=== PATIENT | male | born 1995 | race Caucasian/White ===

== ENCOUNTER 2021-07-15 17:54 | Emergency (ER) | payer OTHER, SELFPAY ==
[2021-07-15] VITALS (10 sets, daily range): BP systolic 104–136; BP diastolic 61–78; PULSE 76–110; RESP 16–26; TEMP 37.1; O2SAT 95–99
--- NOTE | 2021-07-15 18:14 | DI.RAD.S_ITS ---
PROCEDURE: XR CHEST 2V INDICATIONS: weird chest feelings TECHNIQUE: 2 views of the chest were acquired. COMPARISON: None. FINDINGS: Surgical changes and devices: None. Lungs and pleura: Lungs are clear. No pleural effusions or pneumothorax. Mediastinum: Mediastinal contours are normal. Heart size is normal. Bones and chest wall: No suspicious bony abnormalities. Soft tissues appear unremarkable. IMPRESSION: 1. No acute cardiopulmonary disease. Dictated by: Deniz Cortes M.D. on 07/15/2021 at 19:09 Approved by: Deniz Cortes M.D. on 07/15/2021 at 19:12
--- NOTE | 2021-07-15 19:58 | ED.ARRPALP ---
HPI - Arrhythmia/Palpitations General Chief Complaint: Arrhythmia/Palpitations Stated Complaint: chest heaviness, after covid vaccine 01/25/21 Time Seen by Provider: 07/15/21 19:56 Source: patient Mode of arrival: Ambulatory History of Present Illness HPI narrative: 26-year-old male nonsmoker with noncontributory medical history presents with his significant other and a chief complaint of episodes of left-sided chest discomfort off and on since January. He states that he had symptoms develop soon after receiving his COVID vaccination and every 1-2 weeks he has an episode of 1-2 days of noticing this left-sided chest discomfort. He denies any obvious provocation, palliation or radiation. He states that he is frequently active and denies any exertional component. He exercises daily and this does not seem to affect his symptoms. He denies associated symptoms such as dizziness, weakness, lightheadedness or shortness of breath. He has had no cough or hemoptysis. He denies any recent travel, injury or history of blood clot. Review of Systems Review of Systems Narrative: GENERAL: Denies chills, fatigue, malaise, fever, sweats. HEENT: Denies sinus pain, ear pain, sore throat, difficulty swallowing, dizziness. RESPIRATORY: Denies dyspnea, cough, wheezing, hemoptysis, sputum. CARDIOVASCULAR: See HPI GASTROINTESTINAL: Denies nausea, vomiting, abdominal pain, diarrhea, constipation, melena. : Denies dysuria, frequency, incontinence, hematuria, urinary retention. MUSCULOSKELETAL: denies weakness, joint pain, or bony pain SKIN: Denies rash, skin lesions, or other NEUROLOGIC: Denies weakness, headache, numbness, change in speech, confusion, seizures, incoordination. PSYCHIATRIC: No concerning psychosocial issues. 12 point review of systems is negative except for those stated above Patient History Social History Smoking Status: Current every day smoker Smoking Status: Current every day smoker tobacco type: vaping Exam Narrative Exam Narrative: GENERAL: [26 year old patient appears stated age. Well-developed patient, in mild distress. HEAD: Atraumatic. Normocephalic. EYES: Pupils equal round and reactive. Extraocular motions intact. No scleral icterus. No injection or drainage. ENT: Nose without bleeding, purulent drainage. Throat without erythema, tonsillar hypertrophy or exudate. Airway patent. NECK: Trachea midline. Non tender CARDIOVASCULAR: Regular rate and rhythm without murmurs, gallops, or rubs. RESPIRATORY: Clear to auscultation. Breath sounds equal bilaterally. No wheezes, rales, or rhonchi. GASTROINTESTINAL: Abdomen soft, non-tender, nondistended. EXTREMITIES: No edema or joint tenderness. BACK: Nontender without deformity or crepitance. No flank tenderness. NEURO: AOx3. SKIN: No rash or erythema of visible areas Initial Vital Signs Initial Vital Signs: Vital Signs Temperature 98.8 F 07/15/21 18:10 Pulse Rate 110 H 07/15/21 18:10 Respiratory Rate 22 07/15/21 18:10 Blood Pressure 132/78 07/15/21 18:10 Pulse Oximetry 99 07/15/21 18:10 Course Orders Ordered: ED Orders 07/15/21 18:14 XR chest 2V Stat EKG-12 Lead Stat 07/15/21 20:14 C-Reactive Protein Quant Stat Complete Blood Count AUTO DIFF Stat Comprehensive Metabolic Panel Stat D Dimer Stat Erythrocyte Sedimentation Rate Stat Troponin & CK Cardiac Panel Stat 07/15/21 20:36 CT angio chest PE protocol Stat Discontinued Medications Sodium Chloride (Normal Saline 0.9%) 1,000 mls @ 1,000 mls/hr IV BOLUS ONE Stop: 07/15/21 21:35 Last Admin: 07/15/21 20:56 Dose: 1,000 mls/hr Documented by: NIKKO Vital Signs Vital signs: Vital Signs - 8 hr 07/15/21 18:10 07/15/21 19:46 07/15/21 20:15 Temperature 98.8 F Pulse Rate 110 H 92 H 83 Respiratory Rate 22 20 20 Blood Pressure 132/78 136/78 131/71 Pulse Oximetry 99 98 98 07/15/21 20:29 07/15/21 20:30 07/15/21 20:46 Temperature Pulse Rate 78 83 78 Respiratory Rate 18 20 26 H Blood Pressure 109/61 Pulse Oximetry 97 95 99 07/15/21 21:00 07/15/21 21:30 07/15/21 22:00 Temperature Pulse Rate 76 81 78 Respiratory Rate 21 16 19 Blood Pressure 109/61 Pulse Oximetry 97 96 96 07/15/21 22:12 Temperature Pulse Rate 90 Respiratory Rate 21 Blood Pressure 104/73 Pulse Oximetry 97 MDM - Arrhythmia/Palpitations Lab Data Result diagrams: 07/15/21 20:14 07/15/21 20:14 Labs: Lab Results 07/15/21 07/15/21 07/15/21 Range/Units 20:14 20:14 20:14 WBC 11.7 H (4.5-11.0) X10^3/uL RBC 5.61 (4.5-5.9) X10^6/uL Hgb 17.0 (13.5-17.5) g/dL Hct 48.7 (41-53) % MCV 86.8 (80-100) fL MCH 30.4 (26-34) PG MCHC 35.0 (30-36) % RDW 13.2 (11.6-14.8) % Plt Count 340 (150-400) X10^3/uL Neut % (Auto) 75.7 H (50-75) % Lymph % (Auto) 18.8 L (25-40) % [place] % (Auto) 4.6 (3-14) % Eos % (Auto) 0.4 L (2-4) % Baso % (Auto) 0.5 (0-2) % Neut # (Auto) 8800 H (3083-9742) /uL Lymph # (Auto) 2200 (9815-9039) /uL [place] # (Auto) 500 (0-900) /uL Eos # (Auto) 0 (0-450) /uL Baso # (Auto) 100 (0-100) /uL ESR 2 (0-15) MM/HR D-Dimer 252 H (<230) ng/mL Sodium 139 (137-145) mmol/L Potassium 4.0 (3.4-5.1) mmol/L Chloride 100 (98-107) mmol/L Carbon Dioxide 28 (22-32) mmol/L BUN 10 (9-20) mg/dL Creatinine 0.99 (0.66-1.25) mg/dL Estimated GFR > 60.0 (>60) mL/min BUN/Creatinine Ratio 10.1 (6-22) Glucose 97 (70-100) mg/dL Calcium 9.7 (8.4-10.2) mg/dL Total Bilirubin 0.6 (0.2-1.3) mg/dL AST 28 (17-59) IU/L ALT 57 H (<50) IU/L Alkaline Phosphatase 76 (38-126) U/L Total Creatine Kinase 41 L (55-170) U/L CK-MB (CK-2) TNP CK-MB (CK-2) Rel Index TNP Troponin I < 0.012 (0.01-0.034) ng/mL C-Reactive Protein < 0.5 (<1.0) mg/dL Total Protein 8.2 (6.3-8.2) g/dL Albumin 4.8 (3.5-5.0) g/dL Globulin 3.4 (1.7-4.1) g/dL Albumin/Globulin Ratio 1.4 (1.0-2.8) Imaging Data Chest x-ray: Radiologist's Impresson: Kenmaryann CASTILLOYandel J??26??M??1995 ? Allergy/Adv: Not Recorded Close Chest X-Ray (Signed) Deniz Cortes - 07/15/21 Launch?[place] [address] XRay Report Signed Patient: Yandel Mason JR MR#: [id number] : 1995 Acct:[id number] Age/Sex: 26 / M Date of Service: 07/15/21 Loc: Accession Number: [id number] ?? Procedure: XR chest 2V Ordering Provider: Clayton Payne D.O. PROCEDURE:? XR CHEST 2V ? INDICATIONS:? weird chest feelings ? TECHNIQUE:? 2 views of the chest were acquired.? ? COMPARISON:? None. ? FINDINGS:? ? Surgical changes and devices:? None.? ? Lungs and pleura:? Lungs are clear.? No pleural effusions or pneumothorax.? ? Mediastinum:? Mediastinal contours are normal.? Heart size is normal.? ? Bones and chest wall:? No suspicious bony abnormalities.? Soft tissues appear unremarkable.? ? IMPRESSION:? ? 1.? No acute cardiopulmonary disease. ? ? ? Dictated by: Deniz Cortes M.D. on 07/15/2021 at 19:09 ? ? Approved by: Deniz Cortes M.D. on 07/15/2021 at 19:12 ? CT scan - chest: Radiologist's Impresson: Yandel Mason JR??26??M??1995 ? Allergy/Adv: Not Recorded Close Chest CTA (Signed) Deniz Cortes - 07/15/21 Chest X-Ray (Signed) Deniz Cortes - 07/15/21 Launch?[place] [address] CT Scan Report Signed Patient: Yandel Mason JR MR#: [id number] : 1995 Acct:[id number] Age/Sex: 26 / M Date of Service: 07/15/21 Loc: ED Accession Number: [id number] ?? Procedure: CT angio chest PE protocol Ordering Provider: Clayton Payne D.O. PROCEDURE:? CT ANGIO CHEST PE PROTOCOL ? INDICATIONS:? chest pain, tachycardia elevated DDimer, since COVID shot ? TECHNIQUE:? After the administration of intravenous contrast, 2 mm thick sections acquired from the pulmonary apices to the posterior costophrenic angles.? 3-dimensional maximum intensity projection (MIP) coronal and sagittal reformats were then acquired through the thorax.? For radiation dose reduction, the following was used:? automated exposure control, adjustment of mA and/or kV according to patient size.? ? COMPARISON:? [facility], CR, XR CHEST 2V, 07/15/2021, 18:24. ? FINDINGS:? Image quality:? Excellent.? ? Pulmonary arteries:? Pulmonary arteries are normal in size, and demonstrate no intraluminal filling defects to suggest central pulmonary embolism.? ? Lungs and pleura:? Lungs are clear without acute consolidation.? No pleural effusions or pneumothorax.? Central and peripheral airways are patent.? ? Mediastinum:? Heart size is normal, without pericardial effusion.? No mediastinal or hilar adenopathy.? There is soft tissue within the anterior mediastinum compatible with residual thymus.? Thoracic aorta is normal in caliber and enhancement.? Esophagus is normal in caliber, without hiatal hernia.? ? Bones and chest wall:? No suspicious bony lesions.? Ribs and thoracic spine appear intact throughout.? Visualized thyroid demonstrates no discrete nodules.? No axillary or supraclavicular adenopathy.? ? Abdomen:? Visualized upper abdominal solid organs appear normal in the early arterial phase of enhancement.? ? IMPRESSION:? ? 1. No evidence of pulmonary embolism. ? 2. No acute airspace disease in the lungs.? ? ? Dictated by: Deniz Cortes M.D. on 07/15/2021 at 21:52 ? ? Approved by: Deniz Cortes M.D. on 07/15/2021 at 21:54 ? ECG Data Interpretation: EKG: Sinus tachycardia, rate 119. No ST segmental elevations or depressions. No T-wave inversions or hyperacute T-waves. No obvious ectopy. MDM Narrative Medical decision making narrative: Patient with many months of episodes of left-sided chest pressure. No exertional components, no radiation, nausea, vomiting or other red flag findings. EKG is nonischemic. Labs are very reassuring with the exception of a slightly elevated D-dimer. CT angiogram performed and there is no evidence of PE, pericardial effusion or other. Patient given return precautions and questions answered to his apparent satisfaction Discharge Plan Departure Patient Disposition: Home Clinical Impression: Atypical chest pain Instructions: DI for Atypical Chest Pain Activity Restrictions/Additional Instructions: *You have been diagnosed with [atypical chest pain. There is no evidence heart attack, blood clot, pneumonia, collapsed lung, fluid around her heart or myocarditis. Your labs and imaging as well as EKG are very reassuring. *What to do: *Please continue to take your regular medications as directed. [ ] New medication prescriptions sent to your pharmacy: [ ] [ ] New medication written as a paper prescription [ x] No new medications given *Please follow up with your primary care provider in 2-3 days, call for an appointment. Let them know you were seen in the Emergency Department and that we ask that you be seen in follow up. We will electronically transmit a record of today's note if your PCP is in our system *If you do not have a primary care provider please contact the [facility] Resource line at [phone]. They will ask some questions about your medical history and help get you set up with a doctor in the community. *Return to Emergency Department if you should have any new, worsening or concerning symptoms, such as [fever greater than 101 F, shaking chills, worsening pain, persistent vomiting or other bothersome symptoms]
[2021-07-15 20:25] LABS: Add Manual Diff / Slide Review NO; Basophils Absolute Auto 100 /uL (0-100); Basophils Percent Auto 0.5 % (0-2); Eosinophils Absolute Auto 0 /uL (0-450); Eosinophils Percent Auto 0.4 % (2-4); Hematocrit 48.7 % (41-53); Lymphocytes Absolute Auto 2200 /uL (1100-4500); Lymphocytes Percent Auto 18.8 % (25-40); Mean Corpuscular Hemoglobin 30.4 PG (26-34); Mean Corpuscular Volume 86.8 fL (80-100); Monocytes Absolute Auto 500 /uL (0-900); Monocytes Percent Auto 4.6 % (3-14); Neutrophils Absolute Auto 8800 /uL (1500-7000); Neutrophils Percent Auto 75.7 % (50-75); Platelet Count 340 X10^3/uL (150-400); Red Blood Cell Count 5.61 X10^6/uL (4.5-5.9); Red Cell Distribution Width 13.2 % (11.6-14.8); White Blood Cell Count 11.7 X10^3/uL (4.5-11.0)
[2021-07-15 20:28] LABS: D Dimer 252 ng/mL (<230)
[2021-07-15 20:33] LABS: Alanine Aminotransferase 57 IU/L (<50); Albumin 4.8 g/dL (3.5-5.0); Albumin Globulin Ratio 1.4 (1.0-2.8); Alkaline Phosphatase 76 U/L (38-126); Aspartate Aminotransferase 28 IU/L (17-59); BUN Creatinine Ratio 10.1 (6-22); Bilirubin Total 0.6 mg/dL (0.2-1.3); Blood Urea Nitrogen 10 mg/dL (9-20); C-Reactive Protein Quant < 0.5 mg/dL (<1.0); Calcium 9.7 mg/dL (8.4-10.2); Carbon Dioxide 28 mmol/L (22-32); Chloride 100 mmol/L (98-107); Creatine Kinase 41 U/L (55-170); Estimated Glomerular Filt Rate > 60.0 mL/min (>60); Globulin 3.4 g/dL (1.7-4.1); Glucose 97 mg/dL (70-100); HEMOLYSIS < 15 (0-50); Sodium 139 mmol/L (137-145); Total Protein 8.2 g/dL (6.3-8.2)
--- NOTE | 2021-07-15 20:36 | DI.CT.S_ITS ---
PROCEDURE: CT ANGIO CHEST PE PROTOCOL INDICATIONS: chest pain, tachycardia elevated DDimer, since COVID shot TECHNIQUE: After the administration of intravenous contrast, 2 mm thick sections acquired from the pulmonary apices to the posterior costophrenic angles. 3-dimensional maximum intensity projection (MIP) coronal and sagittal reformats were then acquired through the thorax. For radiation dose reduction, the following was used: automated exposure control, adjustment of mA and/or kV according to patient size. COMPARISON: [facility], CR, XR CHEST 2V, 07/15/2021, 18:24. FINDINGS: Image quality: Excellent. Pulmonary arteries: Pulmonary arteries are normal in size, and demonstrate no intraluminal filling defects to suggest central pulmonary embolism. Lungs and pleura: Lungs are clear without acute consolidation. No pleural effusions or pneumothorax. Central and peripheral airways are patent. Mediastinum: Heart size is normal, without pericardial effusion. No mediastinal or hilar adenopathy. There is soft tissue within the anterior mediastinum compatible with residual thymus. Thoracic aorta is normal in caliber and enhancement. Esophagus is normal in caliber, without hiatal hernia. Bones and chest wall: No suspicious bony lesions. Ribs and thoracic spine appear intact throughout. Visualized thyroid demonstrates no discrete nodules. No axillary or supraclavicular adenopathy. Abdomen: Visualized upper abdominal solid organs appear normal in the early arterial phase of enhancement. IMPRESSION: 1. No evidence of pulmonary embolism. 2. No acute airspace disease in the lungs. Dictated by: Deniz Cortes M.D. on 07/15/2021 at 21:52 Approved by: Deniz Cortes M.D. on 07/15/2021 at 21:54
[2021-07-15 20:41] LABS: Troponin I < 0.012 ng/mL (0.01-0.034)
[2021-07-15] MEDS: SODIUM CHLORIDE 0.9% 1,000 ML 1000 ML IV (20:56)
[2021-07-15 21:02] LABS: Erythrocyte Sedimentation Rate 2 MM/HR (0-15)
--- NOTE | 2021-07-25 13:57 | PC.NURSE ---
late entry- per RN IV fluids DC'd at 2200 prior to discharge
== END 2021-07-15 22:25 | disposition home or self-care (01) ==
PROVIDERS: Emergency Provider Emergency Medicine
DX: R07.89 Other chest pain (principal); R00.0 Tachycardia, unspecified
CPT/HCPCS: 36415; 71046; 71275; 80053; 82550; 84484; 85025; 85379; 85651; 86140; 93005; 93010; 96360; 99284; 99285; Q9967